=== PATIENT | male | born 2000 | race Caucasian/White ===

== ENCOUNTER 2020-09-27 17:09 | Emergency (ER) | payer SELFPAY ==
[~2020-09-27] VITALS: Ht 167.6 cm; Wt 108.2 kg
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
[2020-09-27] MEDS ORDERED: ACETAMINOPHEN 500 MG TABLET PO ONE (18:00)
[2020-09-27] MEDS ORDERED: ONDANSETRON ODT 4 MG PO ONE (18:00)
[2020-09-27] MEDS ORDERED: ONDANSETRON ODT 4 MG ONE (18:03)
[2020-09-27] MEDS ORDERED: ACETAMINOPHEN 500 MG TABLET ONE (18:03)
--- NOTE | 2020-09-27 18:08 | NUR ---
AMBULATORY TO CT W/ CAMPGROUND HAND
[2020-09-27] MEDS ORDERED: KETOROLAC 30 MG/1 ML IM ONE (19:30)
[2020-09-27] MEDS ORDERED: KETOROLAC 30 MG/1 ML ONE (19:52)
[2020-09-27 19:58] VITALS: BP 150/92
== END 2020-09-27 20:17 | disposition home or self-care (01) ==
LOC: ED 18:49
DX: S06.0X9A Concussion with loss of consciousness of unspecified duration, initial encounter (principal); R41.0 Disorientation, unspecified; R11.2 Nausea with vomiting, unspecified; W19.XXXA Unspecified fall, initial encounter; Y93.89 Activity, other specified; Y92.098 Other place in other non-institutional residence as the place of occurrence of the external cause; Y99.8 Other external cause status
CPT/HCPCS: 70450; 96372; 99284; J1885; Q0162